=== PATIENT | female | born 1990 | race Caucasian/White ===

== ENCOUNTER → 2017-08-28 | Outpatient (CLI) | payer OTHER ==
[~2017-08-28] MED LIST: ABIL10TA8 PO; MAGICADU2 SWISH-SWAL; SULF1TAB47 PO; Z.0.NO CURRENT MEDS
[2017-08-28 10:56] LABS: HEMATOCRIT 41.4 % (35.0-46.0); HEMOGLOBIN 13.9 GM/DL (11.6-15.3); MEAN CELL VOLUME 95.9 FL (80.0-100.0); MEAN CORPUSCULAR HEMOGLOBIN 32.1 PG (27.0-34.0); MEAN CORPUSCULAR HGB CONC 33.5 % (32.0-36.0); MEAN PLATELET VOLUME 9.6 FL (7.0-11.0); PLATELET COUNT 270 TH/MM3 (150-450); RED BLOOD COUNT 4.32 MIL/MM3 (4.00-5.30); RED CELL DISTRIBUTION WIDTH 13.7 % (11.6-17.2); WHITE BLOOD COUNT 7.3 TH/MM3 (4.0-11.0)
== END ==
LOC: CPRE 09:41
PROVIDERS: ATTEND Specialist
DX: Z01.812 Encounter for preprocedural laboratory examination (principal); J35.01 Chronic tonsillitis
CPT/HCPCS: 36415; 85027

== ENCOUNTER → 2017-08-30 | Day surgery (SDC) | payer OTHER ==
--- NOTE | 2017-08-29 16:50 | MH ---
cc: Fred Roman MD, Michael A MD DATE OF ADMISSION: 08/30/2017 HISTORY OF PRESENT ILLNESS: She is 27. She has chronic tonsillitis for tonsillectomy. PAST MEDICAL HISTORY: Unremarkable. PAST SURGICAL HISTORY: Unremarkable. REVIEW OF SYSTEMS/FAMILY HISTORY/SOCIAL HISTORY: Unremarkable. ALLERGIES: NO KNOWN DRUG ALLERGIES. MEDICATIONS: No medications. PHYSICAL EXAMINATION: GENERAL: Well appearing, no acute distress noted. HEENT: Reveals moderate tonsillar hypertrophy. LUNGS: Clear. HEART: Regular rate and rhythm. ABDOMEN: Soft and nontender. EXTREMITIES: Without cyanosis, clubbing or edema. NEUROLOGIC: Alert, oriented, nonfocal neurologic exam. IMPRESSION: The patient with chronic tonsillitis for tonsillectomy. He is instructed as to method of surgery and possible complications including anesthetic complication, cardiac difficulty, pulmonary difficulty, stroke, coma or even , surgical complication, bleeding, infection, risk of transfusion, velopharyngeal insufficiency, nasopharyngeal stenosis. The patient appeared to agree, accept and understand about mentioned risks and benefits. In addition, no guarantees or warranties were given. We will therefore proceed with surgery. MD JOHN Wright/ , 04:37 PM , 04:49 PM
[~2017-08-30] VITALS: Ht 167.6 cm; Wt 87.4 kg
[~2017-08-30] MED LIST changes: +ACETAMINOPHEN 1000 MG/100 ML 100 ML IV ONE; +ACETAMINOPHEN 325MG/HYDROcodone 7.5MG/15ML UDC PO PRN; +CHLORHEXIDINE GLUCONATE 2 % 1 PACK (2 CLOTHS) TOPICAL PRN; +DEXAMETHASONE SOD PHOS 4 MG/ML VIAL IV ONE; +DO NOT ADM ANY ANTICOAGULANT DRUGS PRN; +LACTATED RINGER'S 1000 ML IV PRN; +LIDOCAINE HCL 1% PF 5 ML SYRINGE OTHER ONE; +METOPROLOL TARTRATE 25 MG TAB PO PRN; +MORPHINE SULFATE 2 MG/ML SYRINGE IV PUSH PRN; +ONDANSETRON HCL 4 MG/2 ML VIAL IV ONE; +ONDANSETRON HCL 4 MG/2 ML VIAL IV PUSH PRN; +POVIDONE IODINE 5% (ANTISEPSIS KIT) 4 APPLICATIONS EACH NARE PRN; +PROPOFOL 200 MG/20 ML AMP IV ONE; +SODIUM CHLORID 0.9% 500 ML IV PRN; +SUCCINYLCHOLINE CHLORIDE 200 MG/10 ML VIAL IV ONE; -SULF1TAB47 PO; -Z.0.NO CURRENT MEDS
[2017-08-30 09:15] VITALS: TEMP 98.6
[2017-08-30 09:55] VITALS: BP 115/73; PULSE 57; RESP 16; O2SAT 98
--- NOTE | 2017-08-30 12:06 | MP ---
cc: Fred Roman MD DATE OF OPERATION: 08/30/2017 DATE OF PROCEDURE: 08/30/2017 PREOPERATIVE DIAGNOSIS: Chronic tonsillitis. POSTOPERATIVE DIAGNOSIS: Chronic tonsillitis. PROCEDURE PERFORMED: Tonsillectomy. ANESTHESIA: General. ESTIMATED BLOOD LOSS: Minimal. COMPLICATIONS: None. SURGEON: Fred Roman MD DESCRIPTION OF OPERATION: Prepped and draped in the usual sterile fashion. Ben-Devaughn mouth gag inserted per orally. Curved Allis clamp used to medialize initially the left tonsil. An anterior tonsillar pillar incision was made with electrocautery and the tonsil removed in the plane between the capsule and the underlying muscle. Adequate hemostasis was obtained with suction electrocautery. In similar fashion opposite side anterior tonsillar pillar incision made with electrocautery. Tonsil removed in the plane between the capsule and underlying muscle. Adequate hemostasis was obtained with suction electrocautery. Ben-Devaughn released, reopened, no active bleeding noted, then removed. The patient tolerated the procedure well. MD JOHN Wright/MATTY , 11:47 AM , 12:05 PM
== END | disposition home or self-care (01) ==
LOC: HSDC 05:59
PROVIDERS: ATTEND Specialist
DX: J35.01 Chronic tonsillitis (principal)
CPT/HCPCS: 00170; 42826; 88304; J0131; J0330; J1100; J2405; J3010; J7120

== ENCOUNTER 2017-09-06 02:04 | Emergency (ER) | payer OTHER ==
[~2017-09-06] VITALS: Ht 167.6 cm; Wt 85.0 kg
[~2017-09-06 02:04] MED LIST changes: -ACETAMINOPHEN 1000 MG/100 ML 100 ML IV ONE; -ACETAMINOPHEN 325MG/HYDROcodone 7.5MG/15ML UDC PO PRN; -CHLORHEXIDINE GLUCONATE 2 % 1 PACK (2 CLOTHS) TOPICAL PRN; -DEXAMETHASONE SOD PHOS 4 MG/ML VIAL IV ONE; -DO NOT ADM ANY ANTICOAGULANT DRUGS PRN; -LACTATED RINGER'S 1000 ML IV PRN; -LIDOCAINE HCL 1% PF 5 ML SYRINGE OTHER ONE; -MAGICADU2 SWISH-SWAL; -METOPROLOL TARTRATE 25 MG TAB PO PRN; -MORPHINE SULFATE 2 MG/ML SYRINGE IV PUSH PRN; -ONDANSETRON HCL 4 MG/2 ML VIAL IV ONE; -ONDANSETRON HCL 4 MG/2 ML VIAL IV PUSH PRN; -POVIDONE IODINE 5% (ANTISEPSIS KIT) 4 APPLICATIONS EACH NARE PRN; -PROPOFOL 200 MG/20 ML AMP IV ONE; -SODIUM CHLORID 0.9% 500 ML IV PRN; -SUCCINYLCHOLINE CHLORIDE 200 MG/10 ML VIAL IV ONE
[2017-09-06 02:16] VITALS: BP 118/90; PULSE 80; RESP 18; TEMP 98.3; O2SAT 98
[2017-09-06] MEDS ORDERED: MAGICADU2 SWISH-SWAL (04:14)
[2017-09-06] MEDS ORDERED: ALUMINUM/MAGNESIUM/SIMETH 30 ML CUP PO ONE (04:15)
[2017-09-06] MEDS ORDERED: LIDOCAINE VISCOUS 2% SOLN 15 ML UDC SWISH-SWAL ONE (04:15)
[2017-09-06] MEDS ORDERED: diphenhydrAMINE HCL ELIXIR 12.5 MG/5 ML CUP PO ONE (04:15)
--- NOTE | 2017-09-06 04:26 | PD ---
HPI Chief Complaint: Oral / Dental Pain or Problem Time Seen by Provider: 04:02 Travel History International Travel<30 days: No Contact w/Intl Traveler<30days: No Traveled to known affect area: No History of Present Illness HPI 27-year-old white female presents emergency department with complaints of sore throat after a tonsillectomy approximately 1 week ago. She states that she was seen by her ENT on Sunday. He felt that this was normal postoperatively. She states that she is having severe pain and is unrelieved by her oxycodone and Motrin. She is also taking Keflex and her antidepressant. She denies any fever chills. No nausea vomiting. No bleeding. Patient states the pain is severe. No alleviating factors. Worsened by swallowing. PFSH Past Medical History Narrative Medical Chronic pharyngitis, depression Cancer: No Cardiovascular Problems: No Diabetes: No Diminished Hearing: No Endocrine: No Genitourinary: No Hepatitis: No Hiatal Hernia: No Immune Disorder: No Musculoskeletal: No Neurologic: No Psychiatric: Yes (BIPOLAR) Reproductive: No Respiratory: No Thyroid Disease: No Tetanus Vaccination: Unknown Influenza Vaccination: No ?: Not LMP: CONTROL : 0 Past Surgical History AICD: No Body Medical Devices: CONTROL LEFT ARM Joint Replacement: No Pacemaker: No Tonsillectomy: Yes Social History Alcohol Use: Yes (OCCAS) Tobacco Use: No Substance Use: No Allergies-Medications (Allergen,Severity, Reaction): Coded Allergies: No Known Allergies (Verified Allergy, Unknown, 09/06/17) Reported Meds & Prescriptions Reported Meds & Active Scripts Active Magic Mouthwash Adult Liq (Multi-Ingredient Mouthwash/Gargle) 120 Ml Susp 5 Ml SWISH-SWAL Q4HR Each 5mL contains: Nystatin 200,000units, Diphenhydramine 4.25mg, Viscous Lidocaine 10mg, Billy syrup 0.8 mL Reported Abilify (Aripiprazole) 10 Mg Tab 2.5 Mg PO BID Review of Systems General / Constitutional: No: Fever Eyes: No: Visual changes HENT: Positive: Sore Throat, No: Headaches, Congestion, Neck Pain, Dental Difficulties, Ear Discharge, Earache Cardiovascular: No: Chest Pain or Discomfort Respiratory: No: Shortness of Breath Gastrointestinal: No: Abdominal Pain Genitourinary: No: Dysuria Musculoskeletal: No: Pain Skin: No Rash Neurologic: No: Weakness Psychiatric: No: Depression Endocrine: No: Polydipsia Hematologic/Lymphatic: No: Easy Bruising Physical Exam Narrative GENERAL: Well-developed, well-nourished in no acute distress. Nontoxic appearing. HEAD: Normocephalic, atraumatic. EYES: Pupils equal round and reactive. Extraocular motions intact. No scleral icterus. No injection or drainage. ENT: TMs clear without erythema. The external auditory canals clear. Nose: clear . Posterior pharynx is erythematous. There is moderate edema. She has white plaquing in her soft palate. There are a few areas of ulceration on the soft tissues as well as her uvula. Positive NECK: Trachea midline.Supple, nontender, moves head freely. No central bony tenderness or spasm. Cervical adenopathy. CARDIOVASCULAR: Regular rate and rhythm without murmurs, gallops, or rubs. RESPIRATORY: Clear to auscultation. Breath sounds equal bilaterally. No wheezes , rales, or rhonchi. GASTROINTESTINAL: Abdomen soft, non-tender, nondistended. No hepato-splenomegaly , or palpable masses. No guarding. EXTREMITIES: No clubbing, cyanosis, or edema. No joint tenderness, effusion, or edema noted. BACK: Nontender without deformity or crepitance. No flank tenderness. Data Data Last Documented VS Vital Signs Date Time Temp Pulse Resp B/P (MAP) Pulse Ox O2 Delivery O2 Flow Rate FiO2 09/06/17 02:16 98.3 80 18 118/90 (99) 98 Orders Orders Al-Mag Hy-Si 40-40-4 Mg/Ml Liq (Mag-Al P (09/06/17 04:15) Diphenhydramine Liq (Benadryl Liq) (09/06/17 04:15) Lidocaine 2% Viscous (Xylocaine 2% Visco (09/06/17 04:15) [facility] Medical Decision Making Medical Screen Exam Complete: Yes Emergency Medical Condition: Yes Medical Record Reviewed: Yes Differential Diagnosis Differential diagnosis: Postoperative bleeding, postoperative infection, viral stomatitis, postoperative pain Narrative Course The patient is given Maalox, Benadryl and viscous lidocaine swish and swallow. This is postoperative pain Diagnosis Primary Impression: Postoperative pain Patient Instructions: General Instructions Additional Instructions: Rest. Increase fluids. Recheck with your ENT later today. Magic mouthwash. Return to the ER for any problems. Med/Other Pt SpecificInfo: Prescription(s) given Scripts Rkvbcgep-Bronftchomvbzxd-Gpmdyoelm Liq (Magic Mouthwash Adult Liq) 120 Ml Susp 5 ML SWISH-SWAL Q4HR for Pain, #120 ML 0 Refills Each 5mL contains: Nystatin 200,000units, Diphenhydramine 4.25mg, Viscous Lidocaine 10mg, Billy syrup 0.8 mL Prov: Travis Rubi MD 09/06/17 Disposition: 01 DISCHARGE HOME Condition: Stable Ulises Shukla Sep 06, 2017 04:26
== END 2017-09-06 04:37 | disposition home or self-care (01) ==
LOC: NEPD 02:04
DX: G89.18 Other acute postprocedural pain (principal); J02.9 Acute pharyngitis, unspecified; F31.9 Bipolar disorder, unspecified; Z90.89 Acquired absence of other organs
CPT/HCPCS: 99282